=== PATIENT | female | born 1995 | race Caucasian/White ===

== ENCOUNTER 2022-01-11 11:01 | Outpatient (CLI) | payer OTHER, SELFPAY ==
[2022-01-11 11:56] VITALS: PULSE 78
== END 2022-01-11 11:40 | disposition home or self-care (01) ==
LOC: ANHOBOP 11:42 → ANHLDR 11:42
PROVIDERS: PCP Nurse Practitioner Family; Visit Provider Obstetrics & Gynecology
DX: O41.8X90 Other specified disorders of amniotic fluid and membranes, unspecified trimester, not applicable or unspecified (principal); Z3A.00 Weeks of gestation of pregnancy not specified
CPT/HCPCS: 59025; 84112; 99199

== ENCOUNTER 2022-01-20 16:02 | Inpatient (IN) | payer OTHER, SELFPAY ==
[2022-01-20] VITALS (7 sets, daily range): BP systolic 98–126; BP diastolic 59–87; PULSE 81–112; TEMP 36.1–36.6; BMI 31.3
--- NOTE | 2022-01-20 16:20 | LDADM ---
This patient, Sheridan Brennan, was admitted to Labor/Delivery/Recovery 108 on 01/20/22 at 16:02. Plans for labor, pain management and were discussed with patient. Patient/family oriented to hospital policies and general routines including ID bracelet, bed and alarms, visiting hours, pain management, procedures, bathroom and other care routines, personal items, smoking policy, room service/diet and guest tray routines, security routines, and visiting hours. Patient/Family are encouraged to report perceived risks to care and to ask questions if they do not understand what they are told or what they should do. See OBIX for further documentation.
[2022-01-20 16:34] LABS: Basophils Absolute Auto 0.1 K/mm3 (0.0-0.1); Basophils Percent Auto 0.4 % (0.2-1.2); Eosinophils Absolute Auto 0.1 K/mm3 (0-0.3); Eosinophils Percent Auto 0.9 % (0-4.4); Hematocrit 36.3 % (37.0-47.0); Hemoglobin 12.2 g/dL (12.0-15.0); Immature Granulocyte Absolute 0.09 K/mm3 (0.00-0.031); Immature Granulocyte Percent A 0.8 % (0-0.5); Lymphocytes Absolute Auto 2.13 K/mm3 (0.9-3.2); Lymphocytes Percent Auto 18.1 % (18.3-44.2); Mean Corpuscular HGB Conc 33.6 g/dl (32-36); Mean Corpuscular Hemoglobin 30.1 pg (26-34); Mean Corpuscular Volume 89.6 fl (80-100); Mean Platelet Volume 9.6 fl (7.4-10.4); Monocytes Percent Auto 8.2 % (2.6-8.5); Neutrophils Absolute Auto 8.4 K/mm3 (1.3-6.7); Neutrophils Percent Auto 71.6 % (45.5-73.1); Platelet Count Result 226 k/mm3 (150-375); Red Blood Count 4.05 M/mm3 (4.2-5.4); Red Cell Distribution Width 14.2 % (11.5-14.5); White Blood Count 11.8 K/mm3 (4.5-10.0)
[2022-01-20] MEDS: DINOPROSTONE 10 MG VAG INSERT VAGINAL (17:01)
--- NOTE | 2022-01-20 17:02 | WPDANESEPP ---
Anes - Eval Pre Procedure Procedure: labor epidural Date/Time: 01/20/22 17:02 Surgeon: jared Preop Diagnosis: pain during labor Pre Op Diagnosis: Induction of Labor Patient Data Age: 26 Gender: F Height: 1.68 m Weight: 88 kg Last Vital Signs Pulse 112 H 01/20/22 16:45 BP 104/87 01/20/22 16:45 O2 Del Method Room Air 01/20/22 16:19 Allergies Allergy/AdvReac Type Severity Reaction Status Date / Time amoxicillin Allergy Rash Verified 01/07/22 12:38 Home Medications Medication Instructions Recorded Confirmed Type cetirizine 10 mg capsule (Zyrtec) 10 mg PO DAILY 01/07/22 01/20/22 History escitalopram oxalate 5 mg tablet 5 mg PO DAILY 01/07/22 01/20/22 History (Lexapro) prenat.vits,bill,rhw-trhu-[id number] 1 tablet PO DAILY 01/07/22 01/20/22 History vitamin B12 0.5 mg-folic acid 1 mg 1 tablet PO DAILY 01/07/22 01/20/22 History tablet Laboratory Tests 01/20/22 01/20/22 16:17 16:17 WBC 11.8 K/mm3 H K/mm3 (4.5-10.0) RBC 4.05 M/mm3 L M/mm3 (4.2-5.4) Hgb 12.2 g/dL g/dL (12.0-15.0) Hct 36.3 % L % (37.0-47.0) MCV 89.6 fl fl (80-100) MCH 30.1 pg pg (26-34) MCHC 33.6 g/dl g/dl (32-36) RDW 14.2 % % (11.5-14.5) Plt Count 226 k/mm3 k/mm3 (150-375) MPV 9.6 fl fl (7.4-10.4) Immature Gran % (Auto) 0.8 % H % (0-0.5) Neut % (Auto) 71.6 % % (45.5-73.1) Lymph % (Auto) 18.1 % L % (18.3-44.2) [place] % (Auto) 8.2 % % (2.6-8.5) Eos % (Auto) 0.9 % % (0-4.4) Baso % (Auto) 0.4 % % (0.2-1.2) Lymph # (Auto) 2.13 K/mm3 K/mm3 (0.9-3.2) [place] # (Auto) 1.0 K/mm3 H K/mm3 (0.1-0.6) Eos # (Auto) 0.1 K/mm3 K/mm3 (0-0.3) Baso # (Auto) 0.1 K/mm3 K/mm3 (0.0-0.1) Abs Immat Gran (auto) 0.09 K/mm3 H K/mm3 (0.00-0.031) Absolute Neuts (auto) 8.4 K/mm3 H K/mm3 (1.3-6.7) Absolute Nucleated RBC 0.0 K/mm3 K/mm3 (0.0-0.012) Nucleated RBC % 0.0 % % (0.0-0.2) RPR Pending Patient hx anesthesia problems: none Family hx anesthesia problems: none Results Review: All pre-operative results and documents have been reviewed as part of the pre-operative evaluation. [facility] Family History Family History (Updated 01/07/22 @ 12:44 by Edith Mishra RN) Father Hypertension Grandparent Prostate carcinoma Melanoma Cerebrovascular accident Ovarian cancer Social History Social History Smoking status: Never smoker Substance use: never Spiritual care concerns: No Exam Day of Procedure 01/20/22 17:02
[2022-01-20 19:03] LABS: HIV 1/2 Ab P24 Ag Result Negative (Negative)
[2022-01-21] VITALS (189 sets, daily range): BP systolic 82–224; BP diastolic 41–188; PULSE 29–163; RESP 18; TEMP 36.4–37.4; O2SAT 66–100
[2022-01-21] MEDS: fentaNYL CITRATE INJ (*CRX) 100 MCG/2 ML VIAL 50 MCG IV PUSH ×2 (00:01→01:19)
[2022-01-21] MEDS: OXYTOCIN 30 UNITS/NS 500 ML 30 UNITS/500 ML BAG IV CONT (01:12)
[2022-01-21] MEDS: LACTATED RINGERS 1,000 ML 125 ML IV CONT ×3 (01:13→08:30)
[2022-01-21] MEDS: TERBUTALINE SULFATE 1 MG/ML VIAL (08:16)
--- NOTE | 2022-01-21 08:45 | WPDOBADMIT ---
Obstetrics - Admit Note Admission Note: record reviewed. Additions to the history and/or subsequent changes in the physical findings follow. 26 y/o G1 at 39 1/7 weeks here for induction of labor. Cervidil was placed last evening, withdrawn after SROM. Now comfortable with epidural. Have been augmenting with oxytocin, but FHR tracing has prompted us to stop the oxytocin. Cervical dilation has progressed without further stimulation. Recent FHR deceleration in the setting of frequent contractions responded well to one dose of terbutaline. uncomplicated. GBS neg. AVSS NST 150 bpm, reactive currently TOCO: contractions every 5 min after terbutaline ABD soft, nontender, gravid, vertex EXT nontender Cervix 8-9/90/0 Continue labor. Anticipate .
[2022-01-21] MEDS: FAMOTIDINE 20 MG/2 ML VIAL IV PUSH (10:20)
[2022-01-21] MEDS: SODIUM CHLORIDE 0.9% IV 300 ML 600 ML I-UTERINE (11:30)
--- NOTE | 2022-01-21 11:31 | PM.OBPNLAB ---
Pain Control Date/time seen: 01/21/22 11:31 Comfortable with epidural. AVSS NST reactive, but also some variable decelerations TOCO: contractions every 2-5 min Cervix 9/100/+1. IUPC placed. Continue labor.
--- NOTE | 2022-01-21 13:01 | PM.OBPRVD ---
OB - Delivery Note Procedure Delivery date: 01/21/22 Procedure: Induction of labor with Induction method: Per Cervidil Protocol Delivery augmentation: Pitocin Delivery monitor: External FHT, External Uterine, Internal FHT and Internal Uterine Route of delivery: Laceration Description: Perineal - 2nd Degree Delivery repair: vicryl (3-0) Specimen: Yes (cord blood) Quantitative Blood Loss (ml): 220 Anesthesia type: Epidural Disposition: PACU Complications: None Narrative: 26 y/o G1 at 39 1/7 weeks gestation who presented to the hospital for induction of labor. Cervidil was placed overnight. She had SROM and the Cervidil was withdrawn. Oxytocin was administered intravenously. She received an epidural for pain control. Her labor progressed and her cervix dilated completely. She pushed with good effort and delivered the infant's head to the perineum, followed by the body. The nose and mouth were bulb suctioned. After a delay, the cord was clamped and cut. The infant was handed off the field. Cord blood was collected. The placenta delivered spontaneously and was grossly normal in appearance. The usual 3 vessel cord was noted. A second degree midline perineal laceration was sustained. This was reapproximated using 3 0 Vicryl in the usual layered fashion. Excellent hemostasis resulted as did excellent reapproximation of the normal anatomy. Needle and instrument counts were correct. The patient was taken to recovery room in stable condition. The went to the nursery in stable condition. I was present and scrubbed for the entire delivery. Baby Date of : 01/21/22 Time of : 12:36 Weeks of gestation at delivery: 39 Infant gender: Female Weight (pounds): 7 Weight (ounces): 5 presentation: vertex position: Left Occiput Anterior Placenta delivery description: Spontaneous and Normal Configuration Cord Vessel Description: 3 Vessels and Delayed Cord Clamping score one minute: 8 score five minutes: 9
--- NOTE | 2022-01-21 13:03 | PM.OBDSVD ---
DS: Admitting Diagnosis Discharge Date 01/22/22 Admitting Diagnosis IUP at 39 1/7 weeks DS: Discharge Diagnosis Discharge Diagnosis (1) (normal spontaneous vaginal delivery): Code(s): O80 - Encounter for full-term uncomplicated delivery Status: Acute OB - DS: Summary OB Procedures : None OB Procedures Intrapartum: Spontaneous Vag Delivery OB Procedures: : None Time Spent with Patient Time attestation: Total time spent providing and/or coordinating discharge services: DS: Data Data Completed and Pending Labs on day of discharge: Labs from last 24 hours 01/20/22 01/20/22 01/20/22 16:17 16:17 16:17 WBC 11.8 H RBC 4.05 L Hgb 12.2 Hct 36.3 L MCV 89.6 MCH 30.1 MCHC 33.6 RDW 14.2 Plt Count 226 MPV 9.6 Immature Gran % (Auto) 0.8 H Neut % (Auto) 71.6 Lymph % (Auto) 18.1 L [place] % (Auto) 8.2 Eos % (Auto) 0.9 Baso % (Auto) 0.4 Lymph # (Auto) 2.13 [place] # (Auto) 1.0 H Eos # (Auto) 0.1 Baso # (Auto) 0.1 Abs Immat Gran (auto) 0.09 H Absolute Neuts (auto) 8.4 H Absolute Nucleated RBC 0.0 Nucleated RBC % 0.0 RPR Pending HIV 1&2 Ab/P24 Ag 4thGn Blood Type A Positive Antibody Screen Negative 01/20/22 16:17 WBC RBC Hgb Hct MCV MCH MCHC RDW Plt Count MPV Immature Gran % (Auto) Neut % (Auto) Lymph % (Auto) [place] % (Auto) Eos % (Auto) Baso % (Auto) Lymph # (Auto) [place] # (Auto) Eos # (Auto) Baso # (Auto) Abs Immat Gran (auto) Absolute Neuts (auto) Absolute Nucleated RBC Nucleated RBC % RPR HIV 1&2 Ab/P24 Ag 4thGn Negative Blood Type Antibody Screen Discharge Plan Discharge Attending physician on discharge: Jarett Ramos Discharging Clinician: Jarett Ramos Patient Disposition: Home, Self-Care Activity: pelvic rest Diet: regular Discharge Instructions: Education: Mom and Baby Guide Given to: Mother Follow-Up: Call your delivering provider's office for an appointment to be seen in: 6 Weeks Mom and baby should come to the [facility] for the follow-up appointment. Appointment Date/Time: January 23, 2022 at 10:00 am What to expect at your follow-up visit: Blood Pressure Check Call [phone] if you are unable to keep your appointment time. BREAST CARE: * Wear a snug supportive bra. * For engorgement discomfort: Breast Feeding: * Apply warm moist washcloths * Express milk as needed to relieve engorgement * Wear loose clothing Bottle Feeding: * May apply ice packs * For sore nipples: * Identify correct latch-on * Apply warm moist washcloths before and after nursing * Air dry nipples after nursing * May apply Lansinoh cream to nipples PERINEAL CARE: * Until bleeding stops, use your jh bottle after urinating * Change your pad frequently throughout the day * You may take sitz baths several times a day (fill your bathtub with warm water and soak for 20 minutes.) Do NOT bathe in the water * No tub baths until seen by your physician - You may shower ACTIVITY: * Rest as much as possible. * Do not exercise or lift anything heavier than your baby (such as laundry or other children.) * Avoid stairs or driving as much as possible. * Do not put anything into the vagina. No douching, tampons, or sexual activity until seen by physician. NOTIFY PHYSICIAN IF YOU HAVE ANY QUESTIONS OR IF ANY OF THE FOLLOWING SYMPTOMS OCCUR: * If your perineum becomes red, swollen, or more painful than what you have experienced in the hospital. * If your vaginal bleeding becomes foul smelling. * If your vaginal bleeding becomes more heavy than a period or if your bleeding changes from pink to bright red. However, you may pass an occasional walnut-sized clot once or twice for the first week . * If you experience a sharp, shooti
[2022-01-21] MEDS: OXYTOCIN 30 UNITS/NS 500 ML 30 UNITS/500 ML BAG 125 UNITS IV CONT (13:11)
[2022-01-21 14:15] LABS: Rapid Plasma Reagin Non-Reactive (NonReactive)
[2022-01-21] MEDS: WITCH HAZEL 40 PADS 1 PAD TOPICAL (14:40)
[2022-01-21] MEDS: BENZOCAINE 20% AER SPR (*SP) 56 GM CAN 1 SPRAY TOPICAL (14:40)
[2022-01-21] MEDS: IBUPROFEN 600 MG TABLET PO ×2 (14:40→23:00)
--- NOTE | 2022-01-21 15:08 | OBPPTRN ---
Patient transferred to post room #280 via wheelchair. Support person present. Oriented to unit, room, information board, rooming in, admission packet and security measures. Patient verbalizes understanding.
[2022-01-22 04:10] VITALS: BP 101/60; PULSE 86; RESP 16; TEMP 36.4
[2022-01-22 05:55] LABS: Hematocrit 29.7 % (37.0-47.0); Hemoglobin 9.8 g/dL (12.0-15.0)
--- NOTE | 2022-01-22 06:45 | PC.NURSE ---
PT introductions made and plan of care discussed per post , pain management, breast feeding, daily care activities and pending discharge. PT and spouse both recipients of such instructions. No barriers to learning identified at this time. PT received such instructions per one to one discussion, mom baby care guide and demonstrations this shift. PT verbalized understanding of such care.
[2022-01-22 08:20] VITALS: BP 112/72; PULSE 89; RESP 16; TEMP 36.8; O2SAT 100
--- NOTE | 2022-01-22 09:16 | WPDANLDPN2 ---
Anes-Prog Note L&D Date/Time: 01/22/22 09:16 Comfortable throughout: labor and delivery Neuraxial method: epidural Epidural/Spinal procedure site: clean & non-tender Neuro status: Neuro function grossly intact. Vital Signs: Last Vital Signs Temp 36.8 C 01/22/22 08:20 Pulse 89 01/22/22 08:20 Resp 16 01/22/22 08:20 BP 112/72 01/22/22 08:20 Pulse Ox 100 01/22/22 08:20 O2 Del Method Room Air 01/21/22 18:30 Pain score (VAS): 2 I/O: Intake & Output 01/21/22 01/22/22 01/22/22 23:59 07:59 15:59 Output Total 500 Balance -500 Patient feedback: Patient satisfied with anesthetic care.
[2022-01-22] MEDS: ACETAMINOPHEN 325 MG TABLET 650 MG PO (11:13)
[2022-01-22] MEDS: ESCITALOPRAM OXALATE 5 MG TABLET PO (11:14)
[2022-01-22] MEDS: MULTIVIT/MIN/PREN/FOL AC/IRON TABLET 1 TAB PO (11:14)
[2022-01-22] MEDS: IBUPROFEN 600 MG TABLET PO (11:14)
[2022-01-22] MEDS: DOCUSATE SODIUM 100 MG CAPSULE PO (11:14)
[2022-01-22] MEDS: LORATADINE 10 MG TABLET PO (11:15)
[2022-01-22] MEDS: POLYSACCHARIDE IRON COMPLEX 150 MG CAPSULE PO (11:15)
[2022-01-22] MEDS: LANOLIN (LANSINOH) 7.5 GM CREAM 1 APPLIC TOPICAL (11:18)
--- NOTE | 2022-01-22 11:40 | PC.NURSE ---
1000 Breast feeding note; mother states her nipples are very sore from breast feeding, now not wanting to put to breast because of pain, stating the pain curls my toes , and became tearful. Baby just past time to eat, and mother waited because baby was quiet, and hesitant to feed because of pain. Suggested nipple rest for a least two feedings, starting some pumping, and bottle feeding . Mother readily agreed to this. Mother's nipples appear cracked and red, more inflammation on her R side. No bleeding. Set up with breast pump; 24mm flanges used and mother able to collect 28cc colostrum. Nipples slightly swollen after pumping; suggested trying 21mm flanges next time. Mother states she has a Spectra pump at home; discussed assessing flange size for comfort, observing for milk collection; Reviewed nipple care using breast milk, air drying. Given gel packs for nipple care/comfort. Discussed tea bag treatment for nipple care several times a day. Mother reported less than 2 pain with pumping. she reports nipple pain has been high, 8-10 with baby's nursing. Parents wanting to be discharged home today. Nurse encouraged them to stay for breast feeding help, but will probably be discharged home later today. Nurse offered to come later in afternoon to assist mother with trying to latch after resting 2 feedings. The other plan suggested was nipple rest for 24 hours, and attempting to latch tomorrow. Offered LC appointment tomorrow after her scheduled f/u visit and mother agreed to that. Will evaluate nipple pain and attempt to latch baby tomorrow. Instructed that with latch, nipple pain should be 0-2 and mother should relatch if higher than a 2. Baby had not eaten in 5 hours; parents shown how to pace bottle feed infant. Baby was very sleepy initially; parents shown how to gently awaken her, and baby did take 16cc Enfamil with rhythmic suck swallow and tolerated well. Nurse started the feeding and FOB completed the bottle feeding. Mother pumped during that time. next feeding, mother plans to pump and baby will receive the colostrum collected. Parents have Mother Baby guide; breast feeding section flagged. f/u contact number for breast feeding office highlighted. Both parents attentive and voiced understanding of all information shared.
[2022-01-22 11:50] VITALS: BP 124/82; PULSE 112; RESP 16; TEMP 36.6; O2SAT 100
--- NOTE | 2022-01-22 15:21 | PM.OBPNVD ---
OB - PN: Subj Subjective Date/time seen: 01/22/22 15:21 Narrative: Pain OK. Would like to go home. OB - PN: Obj Data Labs CBC & Chem 7: 01/22/22 04:29 Labs: Laboratory Results - last 24 hr 01/22/22 04:29 Hgb 9.8 L Hct 29.7 L OB - PN A/P Plan Comments: A: PPD#1, doing well. P: Home to f/u 6 weeks. Exam Psych: Other: AVSS ABD soft, nontender, fundus firm EXT nontender
--- NOTE | 2022-01-22 16:30 | PC.NURSE ---
PT received discharge instructions per protocol and verbalized understanding of such care.
--- NOTE | 2022-01-22 17:12 | PC.NURSE ---
PT discharged to home ambulatory accompanied by spouse and and taken to waiting car. Follow up appts confirmed
[2022-01-23 10:10] VITALS: BP 121/72; PULSE 97; RESP 20; TEMP 36.8; O2SAT 100
== END 2022-01-22 17:12 | disposition home or self-care (01) | DRG 807 ==
LOC: ANHLDR 01-21 13:05 → ANHOB2 01-21 15:50
PROVIDERS: Admitting Provider Obstetrics & Gynecology; PCP Nurse Practitioner Family; Visit Provider Obstetrics & Gynecology
DX: O76 Abnormality in fetal heart rate and rhythm complicating labor and delivery (principal); Z37.0 Single live birth; O70.1 Second degree perineal laceration during delivery; Z3A.39 39 weeks gestation of pregnancy
CPT/HCPCS: 36415; 85014; 85018; 85025; 86592; 86703; 86850; 86900; 86901; A9270; G0432; J2590; J2795; J3010; J3105; J7030; J7120

== ENCOUNTER 2022-01-23 10:44 | Outpatient (RCR) | payer OTHER, SELFPAY ==
--- NOTE | 2022-01-23 15:04 | PC.NURSE ---
Addendum entered by Ai Keen RN 01/23/22 15:38: Baby's total feeding at the breast at today's visit was 10 minutes on each side, transferring 34ml per weighted feeding. Addendum entered by Ai Keen RN 01/23/22 15:30: Parents have called Dr. Devon Ramos's office to schedule initial visit for 01-24-22 or 01-27-22. Original Note: visit; In: 1044 Out: 1220 Mother here for visit because of very sore nipples, damaged nipples while in the hospital, causing severe pain with feedings and mother not wanting to put infant to breast because of pain that curled by toes . LC spent time with mother yesterday prior to mother and baby's discharge; Mother nipples bilaterally inflamed, with cracks noted on R side. Plan was nipple rest for 24 hours, pumping was initiated and mother pumped at each feeding overnight. Baby was bottle fed colostrum and formula about an ounce each feeding since discharge. Today, mother's nipples appear much improved, inflammation resolved; r side still small cracks, but skin appears intact. Mother's milk appears to be in, breasts firm, full. No s/o mastitis. Mother desired to put to breast. Football position on L then R was most comfortable for mom. Baby awake, eager, showing feeding cues; Reviewed positioning, alignment, use of c-hold and nose to nipple latch on, waiting for to open her mouth wide for latch. Baby did latch easily with apparent deep latch, maintained latch and demonstrated rhythmic sucking with frequents swallowing, and some gulping. Parents shown how to assess for deep latch and listen and observe for swallowing. Baby nursed 10 minutes; weighted feeding determined baby transferred 34 ml . Reviewed with parents, 8-12 feedings a day, encouraging infant to nurse both sides. mother to do breast massage and hand expression prior to latch on. Latch and feeding pain level to be at 2 or less, with mother relatching until comfortable latch obtained. If comfortable latch not obtained, stop breast feeding at that feeding, bottle feed infant and pump. Feeding to be an ounce or more as baby desires of pumped breast milk and/or formula. Nipple care to include breast milk to nipples, air dry, lanolin and hydrogel pads. Can do warm tea bag treatments. Reviewed use of pt's Spectra pump and how to alternate between massage and expression cycle, using moderate, comfortable settings. Mother had been using 24mm Spectra flanges; yesterday in hospital 21mm flanges were more comfortable; pt to purchase the smaller Spectra flange and evaluate if she continues needing to pump. Pt reviewed and signed the Plan agreed on: continue 8-12 breast feedings a day. Do breast massage and hand expression prior to latching. Observe for swallowing; when swallowing slows, switch sides. Nurse at pain level of no more than 2 on 1-10 scale. If unable to get comfortable latch, stop attempts, pump and bottle feed . Pumping at comfortable settings, 15 minutes. Nipple care to include breast milk to nipples, air dry, Lanolin; hydrogel pads. Can use warm tea bag treatment 2-3 times a day. Notify doctor and or support of continued painful latch, of inflamed nipples, cracks, bleeding or s/o mastitis, redness, pain in breasts. Call doctor or support with any questions or concerns. Use Mother-Baby Guide for home reference, call doctors as needed. Note to be faxed to Dr. Devon Ramos today.
--- NOTE | 2022-01-23 15:29 | PC.NURSE ---
1220 Mother left visit reporting feeling very encouraged about continued breast feeding.
== END 2022-02-25 09:16 | disposition home or self-care (01) ==
LOC: ANHOBOP 10:44
PROVIDERS: PCP Nurse Practitioner Family; Visit Provider Obstetrics & Gynecology
DX: Z39.1 Encounter for care and examination of lactating mother (principal)
CPT/HCPCS: 99213; G0463

== ENCOUNTER 2023-12-23 13:48 | Inpatient (IN) | payer OTHER, SELFPAY ==
[2023-12-23] VITALS (15 sets, daily range): BP systolic 105–132; BP diastolic 61–80; PULSE 70–105; RESP 16; TEMP 36.2–36.8; BMI 29.2
--- NOTE | 2023-12-23 14:11 | LDADM ---
This patient, Sheridan Brennan, was admitted to Labor/Delivery/Recovery 103 on 12/23/23 at 13:48. Plans for labor, pain management and were discussed with patient. Patient/family oriented to hospital policies and general routines including ID bracelet, bed and alarms, visiting hours, pain management, procedures, bathroom and other care routines, personal items, smoking policy, room service/diet and guest tray routines, security routines, and visiting hours. Patient/Family are encouraged to report perceived risks to care and to ask questions if they do not understand what they are told or what they should do. See OBIX for further documentation.
[2023-12-23 14:19] LABS: Basophils Percent Auto 0.4 % (0.2-1.2); Eosinophils Absolute Auto 0.1 K/mm3 (0-0.3); Eosinophils Percent Auto 0.5 % (0-4.4); Hematocrit 36.8 % (37.0-47.0); Hemoglobin 12.6 g/dL (12.0-15.0); Immature Granulocyte Absolute 0.04 K/mm3 (0.00-0.031); Immature Granulocyte Percent A 0.4 % (0-0.5); Lymphocytes Absolute Auto 1.99 K/mm3 (0.9-3.2); Lymphocytes Percent Auto 17.6 % (18.3-44.2); Mean Corpuscular HGB Conc 34.2 g/dl (32-36); Mean Corpuscular Hemoglobin 30.4 pg (26-34); Mean Corpuscular Volume 88.9 fl (80-100); Monocytes Absolute Auto 0.7 K/mm3 (0.1-0.6); Monocytes Percent Auto 6.1 % (2.6-8.5); Neutrophils Absolute Auto 8.5 K/mm3 (1.3-6.7); Platelet Count Result 188 k/mm3 (150-375); Red Blood Count 4.14 M/mm3 (4.2-5.4); Red Cell Distribution Width 13.4 % (11.5-14.5); White Blood Count 11.3 K/mm3 (4.5-10.0)
[2023-12-23] MEDS: DINOPROSTONE 10 MG VAG INSERT VAGINAL (14:43)
[2023-12-23] MEDS: LACTATED RINGERS 1,000 ML 125 ML IV CONT (14:44)
[2023-12-23] MEDS: ceFAZolin 2 GM/D5W 50 ML 2 GM/50 ML BAG IVPB (14:44)
[2023-12-23] MEDS: ceFAZolin 1 GM/NS 50 ML 1 GM/50 ML BAG IVPB (22:45)
[2023-12-24] VITALS (172 sets, daily range): BP systolic 79–149; BP diastolic 49–97; PULSE 57–124; RESP 16–18; TEMP 36.3–37.2; O2SAT 83–100
[2023-12-24] MEDS: LACTATED RINGERS 1,000 ML 125 ML IV CONT (02:55)
--- NOTE | 2023-12-24 03:02 | WPDANESEPP ---
Anes - Eval Pre Procedure Procedure: Labor Epidural Date/Time: 12/24/23 03:02 Surgeon: Rachel Preop Diagnosis: Labor Pain Pre Op Diagnosis: IOL Patient Data Age: 28 Gender: F Height: 1.68 m Weight: 82 kg Last Vital Signs Temp 36.2 C L 12/23/23 22:48 Pulse 78 12/24/23 03:00 Resp 16 12/23/23 20:22 BP 116/72 12/24/23 03:00 Pulse Ox 99 12/24/23 02:59 O2 Del Method Room Air 12/23/23 14:09 Allergies Allergy/AdvReac Type Severity Reaction Status Date / Time amoxicillin Allergy Rash Verified 11/26/23 12:29 Home Medications Medication Instructions Recorded Confirmed Type cetirizine 10 mg capsule (Zyrtec) 10 mg PO DAILY 01/07/22 12/23/23 History escitalopram oxalate 5 mg tablet 5 mg PO DAILY 01/07/22 12/23/23 History (Lexapro) prenat.vits,bill,akq-mffz-kxtfe 1 tablet PO DAILY 01/07/22 12/23/23 History Laboratory Tests 12/23/23 14:00 WBC 11.3 H K/mm3 (4.5-10.0) RBC 4.14 L M/mm3 (4.2-5.4) Hgb 12.6 g/dL (12.0-15.0) Hct 36.8 L % (37.0-47.0) MCV 88.9 fl (80-100) MCH 30.4 pg (26-34) MCHC 34.2 g/dl (32-36) RDW 13.4 % (11.5-14.5) Plt Count 188 k/mm3 (150-375) MPV 10.0 fl (7.4-10.4) Immature Gran % (Auto) 0.4 % (0-0.5) Neut % (Auto) 75.0 H % (45.5-73.1) Lymph % (Auto) 17.6 L % (18.3-44.2) [place] % (Auto) 6.1 % (2.6-8.5) Eos % (Auto) 0.5 % (0-4.4) Baso % (Auto) 0.4 % (0.2-1.2) Lymph # (Auto) 1.99 K/mm3 (0.9-3.2) [place] # (Auto) 0.7 H K/mm3 (0.1-0.6) Eos # (Auto) 0.1 K/mm3 (0-0.3) Baso # (Auto) 0.0 K/mm3 (0.0-0.1) Abs Immat Gran (auto) 0.04 H K/mm3 (0.00-0.031) Absolute Neuts (auto) 8.5 H K/mm3 (1.3-6.7) Absolute Nucleated RBC 0.000 K/mm3 (0.0-0.012) Nucleated RBC % 0.0 % (0.0-0.2) RPR Pending Blood Type A Positive Antibody Screen Negative : gestational age (JUANA 12/25/23, ) Patient hx anesthesia problems: none Family hx anesthesia problems: none Results Review: All pre-operative results and documents have been reviewed as part of the pre-operative evaluation. [facility] [place] Family History Family History Father Hypertension Grandparent Prostate carcinoma Melanoma Cerebrovascular accident Ovarian cancer Social History Social History Smoking status: Never smoker Substance use: never Do You Feel Safe in your Home?: No Lack of Transportation: No Lack of Food: Never True Current Housing: I Have Housing Concerned About Future Housing: No Difficulty Paying Gas/Electric Bills: No Difficulty Paying for Meds: No Currently Unemployed: No Education: Don't Know Difficulty w/ Childcare or Family Care: No Spiritual care concerns: No Exam Day of Procedure 12/24/23 03:02 Patient weight: normal Heart: regular rate and rhythm Lungs: normal air movement Airway: Mallampati scale class II Neurological: alert and oriented
[2023-12-24] MEDS: ONDANSETRON INJ 4 MG/2 ML VIAL IV PUSH (03:38)
[2023-12-24] MEDS: ceFAZolin 1 GM/NS 50 ML 1 GM/50 ML BAG IVPB (06:33)
[2023-12-24] MEDS: OXYTOCIN 30 UNITS/NS 500 ML 30 UNITS/500 ML BAG IV CONT (06:34)
[2023-12-24] MEDS: ESCITALOPRAM OXALATE 5 MG TABLET PO (08:12)
--- NOTE | 2023-12-24 08:46 | WPDOBADMIT ---
Obstetrics - Admit Note Admission Note: record reviewed. Additions to the history and/or subsequent changes in the physical findings follow. 28 y/o at 39 6/7 weeks here for induction of labor. Cervidil last night, now withdrawn. Comfortable with epidural. GBS pos, receiving Ancef. AVSS NST reactive TOCO: contractions every 2-3 min ABD soft, nontender, gravid, vertex EXT nontender Cervix 4/50/-2. AROM with clear fluid. Vertex. IUPC placed. A: IUP at term, here desiring induction of labor. P: Oxytocin. Anticipate . Ancef for GBS.
--- NOTE | 2023-12-24 11:39 | PM.OBPRVD ---
OB - Vaginal Delivery Note Procedure Delivery date: 12/24/23 Events: Positive Group B Strep (GBS) Induction method: Per Cervidil Protocol Delivery augmentation: Rupture of Membranes and Pitocin Delivery monitor: External FHT, External Uterine and Internal Uterine Route of delivery: Episiotomy description: None Laceration Description: Perineal - 2nd Degree and Labial (right) Delivery repair: vicryl (3-0) Specimen: Yes (cord blood) Quantitative Blood Loss (ml): 320 Anesthesia type: Epidural Disposition: PACU Complications: None Narrative: 28 y/o at 39 5/7 weeks gestation who presented to the hospital for induction of labor. Ancef was given for GBS colonization. Cervidil was placed overnight, then withdrawn the next morning. Oxytocin was administered intravenously. Amniotomy was performed with return of clear fluid. She received an epidural for pain control. Her labor progressed and her cervix dilated completely. She pushed with good effort and delivered the 's head to the perineum, followed by the body. The nose and mouth were bulb suctioned. After a delay, the cord was clamped and cut. The infant was handed off the field. Cord blood was collected. The placenta delivered spontaneously and was grossly normal in appearance. The usual 3 vessel cord was noted. A second degree midline perineal laceration was sustained. This was reapproximated using 3 0 Vicryl in the usual layered fashion. A right-sided labial laceration was repaired using interrupted figure of eight sutures of the same material. Excellent hemostasis resulted as did excellent reapproximation of the normal anatomy. Needle and instrument counts were correct. The patient was taken to recovery room in stable condition. The went to the nursery in stable condition. I was present and scrubbed for the entire delivery. Baby Date of : 12/24/23 Time of : 11:17 Weeks of gestation at delivery: 39 Infant gender: Female Weight (pounds): 7 Weight (ounces): 10 presentation: vertex position: Right Occiput Anterior Placenta delivery description: Spontaneous and Normal Configuration Cord Vessel Description: 3 Vessels and Delayed Cord Clamping score one minute: 8 score five minutes: 9
--- NOTE | 2023-12-24 11:39 | PM.OBDSVD ---
DS: Admitting Diagnosis Discharge Date 12/25/23 Admitting Diagnosis IUP at 39 5/7 weeks GBS colonization DS: Discharge Diagnosis Discharge Diagnosis (1) (normal spontaneous vaginal delivery): Code(s): O80 - Encounter for full-term uncomplicated delivery Status: Acute (2) GBS (group B Streptococcus carrier), +RV culture, currently : Code(s): O99.820 - Streptococcus B carrier state complicating Status: Acute OB - DS: Summary OB Procedures : None OB Procedures Intrapartum: Spontaneous Vag Delivery and GBS prophylaxis OB Procedures: : None Time Spent with Patient Time attestation: Total time spent providing and/or coordinating discharge services: DS: Data Data Completed and Pending Labs on day of discharge: Labs from last 24 hours 12/23/23 14:00 WBC 11.3 H RBC 4.14 L Hgb 12.6 Hct 36.8 L MCV 88.9 MCH 30.4 MCHC 34.2 RDW 13.4 Plt Count 188 MPV 10.0 Immature Gran % (Auto) 0.4 Neut % (Auto) 75.0 H Lymph % (Auto) 17.6 L Will % (Auto) 6.1 Eos % (Auto) 0.5 Baso % (Auto) 0.4 Lymph # (Auto) 1.99 Will # (Auto) 0.7 H Eos # (Auto) 0.1 Baso # (Auto) 0.0 Abs Immat Gran (auto) 0.04 H Absolute Neuts (auto) 8.5 H Absolute Nucleated RBC 0.000 Nucleated RBC % 0.0 RPR Pending Blood Type A Positive Antibody Screen Negative Discharge Plan Discharge Attending physician on discharge: Jarett Ramos Consulting providers: Aaliyah Ayala; Myrna Fair Discharging Clinician: Jarett Ramos Patient Disposition: Home, Self-Care Activity: pelvic rest Diet: regular Discharge Instructions: Education: Mom and Baby Guide Given to: Mother Follow-Up: Call your delivering provider's office for an appointment to be seen in: 6 Weeks Mom and baby should come to the [facility] for the follow-up appointment. Appointment Date/Time: December 28, 2023 at 11:00 am What to expect at your follow-up visit: Blood Pressure Check Physical Assessment Call [phone] if you are unable to keep your appointment time. BREAST CARE: * Wear a snug supportive bra. Bottle Feeding: * May apply ice packs EPISIOTOMY/PERINEAL CARE: * Until bleeding stops, use your jh bottle after urinating * Change your pad frequently throughout the day * You may take sitz baths several times a day (fill your bathtub with warm water and soak for 20 minutes.) Do NOT bathe in the water * No tub baths until seen by your physician - You may shower ACTIVITY: * Rest as much as possible. * Do not exercise or lift anything heavier than your baby (such as laundry or other children.) * Avoid stairs or driving as much as possible. * Do not put anything into the vagina. No douching, tampons, or sexual activity until seen by physician. NOTIFY PHYSICIAN IF YOU HAVE ANY QUESTIONS OR IF ANY OF THE FOLLOWING SYMPTOMS OCCUR: * If your episiotomy or incision becomes red, swollen, or more painful than what you have experienced in the hospital. * If your vaginal bleeding becomes foul smelling. * If your vaginal bleeding becomes more heavy than a period or if your bleeding changes from pink to bright red. However, you may pass an occasional walnut-sized clot once or twice for the first week . * If you experience a sharp, shooting pain in you calves. * If you discover a hard, reddened area on your breast or if you experience flu-like symptoms. DIET: * Eat regular, well-balanced meals. * Drink plenty of fluids daily. If , drink to thirst.Call or return if temperature above 100.4? F, increased abdominal pain, increased vaginal bleeding or any new problems. Stand Alone Forms: General Discharge Information Follow-up/Referrals: Jarett Ramos MD [Physician] - 6 Weeks Discharge Medications: New ibuprofen 600 mg tablet 600 mg PO Q6H PRN (Reason: cramps) Qty: 30 0RF Continued
[2023-12-24] MEDS: OXYTOCIN 30 UNITS/NS 500 ML 30 UNITS/500 ML BAG 125 UNITS IV CONT (11:55)
[2023-12-24] MEDS: IBUPROFEN 600 MG TABLET PO ×2 (13:09→19:51)
[2023-12-24] MEDS: WITCH HAZEL 40 PADS 1 PAD TOPICAL (13:10)
[2023-12-24] MEDS: BENZOCAINE 20% AER SPR (*SP) 56 GM CAN 1 SPRAY TOPICAL (13:10)
[2023-12-24 13:20] LABS: Rapid Plasma Reagin Non-Reactive (NonReactive)
--- NOTE | 2023-12-24 14:00 | OBPPTRN ---
Patient transferred to post room #291 via wheelchair. Support person present. Oriented to unit, room, information board, rooming in, admission packet and security measures. Patient verbalizes understanding.
[2023-12-24] MEDS: ACETAMINOPHEN 325 MG TABLET 650 MG PO (16:36)
[2023-12-25] MEDS: ACETAMINOPHEN 325 MG TABLET 650 MG PO ×2 (00:56→08:23)
[2023-12-25 04:00] VITALS: BP 105/56; PULSE 76; RESP 18; TEMP 36.6; O2SAT 100
[2023-12-25] MEDS: IBUPROFEN 600 MG TABLET PO ×2 (04:07→11:22)
[2023-12-25 04:27] LABS: Hematocrit 29.5 % (37.0-47.0); Hemoglobin 9.9 g/dL (12.0-15.0)
[2023-12-25] MEDS: ESCITALOPRAM OXALATE 5 MG TABLET PO (08:23)
[2023-12-25] MEDS: POLYSACCHARIDE IRON COMPLEX 150 MG CAPSULE PO (08:24)
[2023-12-25] MEDS: MULTIVIT/MIN/PREN/FOL AC/IRON TABLET 1 TAB PO (08:24)
[2023-12-25 08:40] VITALS: BP 115/67; PULSE 71; RESP 16; TEMP 36.4; O2SAT 100
[2023-12-25] MEDS: DOCUSATE SODIUM 100 MG CAPSULE PO (08:41)
--- NOTE | 2023-12-25 09:55 | WPDANLDPN2 ---
Anes-Prog Note L&D Date/Time: 12/25/23 09:55 Comfortable throughout: labor and delivery Neuraxial method: epidural Epidural/Spinal procedure site: clean & non-tender Neuro status: Neuro function grossly intact. Cardiovascular status: normal Respiratory status: normal Airway patency: baseline Mental status: baseline Post-Op hydration status: normal Vital Signs: Last Vital Signs Temp 36.4 C L 12/25/23 08:40 Pulse 71 12/25/23 08:40 Resp 16 12/25/23 08:40 BP 115/67 12/25/23 08:40 Pulse Ox 100 12/25/23 08:40 O2 Del Method Room Air 12/23/23 14:09 Pain score (VAS): 0/0 I/O: Intake & Output 12/24/23 12/25/23 12/25/23 23:59 07:59 15:59 Intake Total 500 Balance 500 Post-procedural complaints: none Patient feedback: Patient satisfied with anesthetic care.
[2023-12-28 11:23] VITALS: BP 125/69; PULSE 90; RESP 18; TEMP 36.8; O2SAT 100
== END 2023-12-25 14:55 | disposition home or self-care (01) | DRG 807 ==
LOC: ANHLDR 12-24 10:32 → ANHOB2 12-24 14:17
PROVIDERS: Admitting Provider Obstetrics & Gynecology; PCP Nurse Practitioner Family; Visit Provider Obstetrics & Gynecology
DX: O99.824 Streptococcus B carrier state complicating childbirth (principal); Z37.0 Single live birth; Z3A.39 39 weeks gestation of pregnancy; O70.1 Second degree perineal laceration during delivery
CPT/HCPCS: 36415; 85014; 85018; 85025; 86592; 86850; 86900; 86901; A9270; J0690; J2405; J2590; J2795; J7120

== ENCOUNTER 2024-10-31 10:49 | Outpatient (CLI) | payer OTHER, SELFPAY ==
--- NOTE | ~2024-10-31 | US_ITS ---
Left inguinal ULTRASOUND (Doppler ultrasound interrogation techniques used as needed for this exam.) Ordering provider: Jennifer Calderon, [employer] History: . Intra abd plevic swelling,mass lump,unspecified site . Comparison: None. FINDINGS/impression: 4.3 x 1.5 x 3.1 cm with movements during Valsalva suggestive of inguinal hernia. Reviewed, dictated and finalized at location A.
== END 2024-10-31 10:50 | disposition home or self-care (01) ==
LOC: MICIMG 10:51
PROVIDERS: PCP Nurse Practitioner Family; Visit Provider Nurse Practitioner Family
DX: R19.09 Other intra-abdominal and pelvic swelling, mass and lump (principal)
CPT/HCPCS: 76882

== ENCOUNTER 2024-11-25 14:44 | Outpatient (CLI) | payer OTHER, SELFPAY ==
--- NOTE | ~2024-11-25 | MM_ITS ---
EXAMINATION: MM screening yamilex BI w eugene HISTORY: Screening TECHNIQUE: Craniocaudal and mediolateral oblique 3-D tomosynthesis images were obtained and synthetic 2-D images were generated. CAD analysis was submitted and interpreted. COMPARISON: No prior mammogram is available for comparison at this institution. BREAST PARENCHYMAL COMPOSITION: Dense: The breasts are extremely dense, which lowers the sensitivity of mammography. FINDINGS: There is no evidence of suspicious mass, calcification, or architectural distortion to sugg est malignancy in either breast. There has been no suspicious interval change. IMPRESSION: 1. No mammographic evidence of malignancy. 2. Recommend routine screening mammography in one year. BI-RADS Category 1: Negative Reviewed, dictated and finalized at location A.
== END 2024-11-25 14:45 | disposition home or self-care (01) ==
PROVIDERS: PCP Nurse Practitioner Family; Visit Provider Obstetrics & Gynecology
DX: Z12.31 Encounter for screening mammogram for malignant neoplasm of breast (principal); Z85.3 Personal history of malignant neoplasm of breast
CPT/HCPCS: 77063; 77067

== ENCOUNTER 2025-03-03 14:45 | Outpatient (CLI) | payer OTHER, SELFPAY ==
--- NOTE | ~2025-03-03 | US_ITS ---
EXAMINATION: US OB <=14 wk fetus w TV DATE: 03/03/2025 15:12 INDICATION: Evaluate for viability TECHNIQUE: Real-time transabdominal and transvaginal obstetr ic ultrasound. FINDINGS: No prior studies for comparison. The uterus measures 10 x 6.9 x 7.6 cm. There is an intrauterine gestational sac, with pole iden tified. pole is identified with crown-rump length measuring 1.52 cm corresponding to 7 weeks 6 day gestation. No heart motions, consistent with demise. Yolk sac is present. There is a subchorionic hemorrhage measuring 2.5 x 2.7 x 1.3 cm. The ovaries within normal limits. There is smal l amount of free fluid in the pelvis. IMPRESSION: 1. demise corresponding to 7 week 3 day gestation age. No heart motions detected. Recomme nd follow-up correlation with beta-hCG levels and ultrasound as clinically indicated. 2: Moderate size subchorionic hemorrhage measuring 2.7 x 2.5 x 1.3 cm. Reviewed, dictated and finalized at location B. IMPRESSION: 1. demise corresponding to 7 week 3 day gestation age. No heart mot ions detected. Recommend follow-up correlation with beta-hCG levels and ultraso und as clinically indicated. 2: Moderate size subchorionic hemorrhage measuring 2.7 x 2.5 x 1.3 cm.
== END 2025-03-03 14:46 | disposition home or self-care (01) ==
LOC: MICIMG 14:46
PROVIDERS: PCP Nurse Practitioner Family; Visit Provider Nurse Practitioner Family
DX: O36.80X0 Pregnancy with inconclusive fetal viability, not applicable or unspecified (principal); Z3A.00 Weeks of gestation of pregnancy not specified
CPT/HCPCS: 76801; 76817

== ENCOUNTER 2025-03-13 00:54 | Day surgery (SDC) | payer OTHER, SELFPAY ==
[2025-03-07 14:40] VITALS: BMI 23.3
--- NOTE | 2025-03-07 14:41 | PC.NURSE ---
Report to the Outpatient Waiting Room, entrance under the green pavilion located off [facility], at time _0600_ on date _[id number]_. Planned Procedure Time: _0730_.? Time changes happen often and if your time is changed the preop area will call you the afternoon before. - You and your visitor will be asked to self-screen and do not enter if you have any COVID symptoms. Please call surgeon if you need to reschedule. - A mask is optional within the hospital at this time. Patients may have clear liquids (water, carbonated beverages, clear teas, apple juice) until 3 hours prior to surgery with a maximum of 20 ounces. - No food from midnight until time of surgery and no smoking, or chewing tobacco (or any form of nicotine). No chewing gum, candy or mints. Take only the following medications with a SIP of water on the morning of surgery: ____Escitalopram DO NOT STOP ANY OF YOUR OTHER PRESCRIPTION MEDICATIONS PRIOR TO SURGERY EXCEPT THE FOLLOWING Hold all vitamins and supplements for 3 days per anesthesiologist. Medications to discontinue per physician Date to take last udms___[id number]____ Please no make-up, nail khmer, hairspray, perfume, deodorant, or body powder the day of surgery.? No jewelry (including any body piercings) or valuables the day of surgery, leave them at home.? Please take a shower or bath the night before, or the morning of, surgery with an antibacterial soap.? Wear comfortable, loose fitting clothing. - Jewelry must be removed prior to entering the operating room.? Rings and piercings that are not removed may be cut off. - The hospital will not accept responsibility for valuables.? - Please leave all valuables, including medications, at home the day of surgery. If you are going home after surgery, a licensed city route driver must drive you home.? - NO public transportation without another adult if you receive anesthesia. - We recommend that an adult stay with you for 24 hours following discharge. - We also recommend that you do not drive, make important decision, drink alcoholic beverages, or take any drugs that were not prescribed by your health care provider for at least 24 hours after your discharge time. Follow any additional instructions given to you from your surgeon. Telephone instructions given to __Sheridan__and asked if any additional questions and then verbalized understanding. Patient advised to call surgeon office or pre surgery nurse liaison [phone] if any additional questions.
--- OUTSIDE RECORDS SUMMARY | 2025-03-13 00:57 | XMS_ITS | Clinical Summary ---
Author Organization [facility] Address [address] [place] [address] Phone Care Team Providers Care Entry Driver Operator Name Role Phone Brenda Gao [facility] Primary Care Provider Allergies Active Allergy Reactions Criticality Noted Date Comments Amoxicillin Hives High 01/25/2018 Medications multivit-minerals /folic acid (ADULT ONE DAILY MULTIVITAMIN ORAL) Take by mouth. Active betamethasone valerate (VALISONE) 0.1 % Cream Apply to affected area 2 times daily. 45 Gram 8 Active escitalopram oxalate (LEXAPRO) 5 mg tablet Take 5 mg by mouth daily. Active norethindrone-eth in estradioL (Ortho-Novum , ,) 1-35 mg-mcg tablet Take 1 Tablet by mouth daily. 84 Tablet 3 0 Active Active Problems No known active problems Immunizations Immunization Administration Dates Next Due (GARDASIL 9)(9-45 YRS) HUMAN PAPILLOMAVIRUS VACCINE, TYPES 6, 11, 16, 18, 31, 33, 45, 52, 58, NONAVALENT (9VHPV), 2 OR 3 DOSE, IM 02/04/2019,04/23/2018 (GARDASIL)(9-45 YRS) HUMAN P APILLOMAVIRUS VACCINE, TYPES 6, 11, 16, 18, QUADRIVALENT (4VHPV), 3 DOSE, IM 02/08/2018 INFLUENZA VACCINE QUADRIVALE NT 3 YR UP PF IM 05/21/2015 Influenza Seasonal Unspecifi ed Formulation IM 06/14/2019,05/25/2018,06/30/2017 Family History Medical History Relation Name Comments Hypertension Father Breast Cancer Maternal Aunt Hypertension Mother Colon Cancer Neg Hx Ovarian Cancer Neg Hx Relation Name Status Comments Father Alive Maternal Aunt Alive Mother Alive Social History Tobacco Use Types Packs/Day Years Used Date Smoking Tobacco: Never Smokeless Tobacco: Never Alcohol Use Standard Drinks/Week Comments Yes 0 (1 standard drink = 0.6 oz pur e alcohol) Occasionally Comments No Sex and Gender Information Value Date Recorded Sex Assigned at Not on file Legal Sex Female 4:17 PM CDT Gender Identity Not on file Sexual Orientation Not on file Last Filed Vital Signs Vital Sign Reading Time Taken Comments Blood Pressure 112/78 03/16/2020 12:07 PM CDT Pulse - - Temperature - - Respiratory Rate - - Oxygen Saturation - - Inhaled Oxygen Concentration - - Weight 64 kg (141 lb) 03/16/2020 12:07 PM CDT Height 167.6 cm (5' 6) 03/16/2020 12:07 PM CDT Body Mass Index 22.76 03/16/2020 12:07 PM CDT Plan of Treatment Health Maintenance Due Date Last Done Comments CERVICAL CANCER SCREENING 01/25/2019 PAP SMEAR 01/25/2019 01/25/2018, 01/25/2018 DTAP/TDAP/TD VACCINES (8 - T d or Tdap) 04/16/2022 04/16/2012, 01/07/2011, 04/13/1998, Additional history exists HPV/Cotest (21-29) 01/25/2023 01/25/2018 HPV/Cotest (30-65) 2023 01/25/2018 INFLUENZA VACCINE (#1) 2025 9, 05/25/2018, 06/30/2017, Additional history exists HEPATITIS B VACCINES Completed 11/01/1996, 09/22/1995, 08/24/1995 HPV VACCINES Completed 02/04/2019, 02/2018, 02/08/2018 Procedures Procedure Name Priority Date/Time Associated Diagnosis Comments CERV/VAG CYTO SCREEN PAP RLFX HPV Routine 01/25/2018 2:53 PM CDT Pap smear for cervical cancer screening Screening for HPV (human papillomavirus) from Last 3 Months or Most Recently Relevant to Health Maintenance Results * CERV/VAG CYTOPATH, THIN PREP IMAGR RFLX HPV (01/25/2018 2:53 PM CDT) CLINICAL INFORMATION SEE COMMENT 01/29/2018 10:32 AM CDT [facility] Comment:Oral contraceptives LAST MENSTRUAL PERIOD 2018011901/29/2018 10:32 AM CDT [facility] PREV PAP: SEE COMMENT 01/29/2018 10:32 AM CDT [facility] Comment:[id number] NIL PREV BX: SEE COMMENT 01/29/2018 10:32 AM CDT [facility] Comment:INFORMATION NOT PROV IDED SOURCE Endocervix 01/29/2018 10:32 AM CDT [facility] ADEQUACY: SEE COMMENT 01/29/2018 10:32 AM CDT [facility] Comment: Satisfactory for evaluation. Endocervical/transformation zone component present. PAP INTERP SEE COMMENT 01/29/2018 10:32 AM CDT [facility] Comment:Negative for intraep ithelial lesion or malignancy. COMMENT SEE COMMENT 01/29/2018 10:32 AM CDT [facility] Comment: This Pap test has been evaluated with computer assisted technology. SQUIRREL MAN: SEE COMMENT 2017 10:32 AM CDT [facility] Comment: ESTELAYJEOVANNY(ASCP) CT screening location: [place] [address] Administration [place] [address] EXPLANATORY NOTE SEE COMMENT 018 10:32 AM CDT [facility] Comment: EXPLANATORY NOTE: The Pap is a screening test for cervical cancer. It is not a diagnostic test and is subject to false negative and false positive results. It is most reliable when a satisfactory sample, regularly obtained, is submitted with relevant clinical findings and history, and when the Pap result is evaluated along with historic and current clinical information. Genital SWAB OF ENDOCERVIX / Unknown Collection / Unknown 01/25/2018 2:53 PM CDT 01/25/2018 8:26 PM CDT Narrative [facility] - 01/29/2018 10:32 AM CDT Performing Organization Information: Site ID: Name: [id number] Address: [facility] Administration [place] [address] Director: Almita Covarrubias Yana Beltrán MD PATHOLOGY/CYTOLOGY APOLINAR FLETCHER Final Result [facility] from Last 3 Months or Most Recently Relevant to Health Maintenance Insurance [facility] OPEN ACCESS HMO Care Teams Entry Driver Operator Relationship Specialty Start Date End Date Brenda Gao FNP [address] [id number] PCP - General Nurse Practitioner Family 12/12/19
--- OUTSIDE RECORDS SUMMARY | 2025-03-13 00:58 | XMS_ITS | Data Portability ---
Author Organization [place] [facility], Main Office Address [address] [place] [address] Assessment No assessment recorded. Plan of Treatment Reminders Order Date Submit Date Provider Last Modified By Organization Details Last Modified Time Details Appointments Any 15 2024 10:30A M Jennifer Calderon APRN Not available Not available Not available Lab CBC w/ auto diff 2023 024 [email or web address] [facility], [address], [place], [address], 04/25/2024 08:56:19 CMP, serum or plasma 2023 024 [facility], [address], [place], [address], 04/12/2024 11:52:51 lipid panel, serum 2023 024 [facility], [address], [place], [address], 04/26/2024 12:57:42 TSH + free T4, serum 2023 024 [email or web address] [facility], [address], [place], [address], 04/12/2024 11:52:53 vitamin D, 25-hydrox y, total, serum 2023 024 [facility], [address], [place], [address], 05/03/2024 13:50:04 hepatitis C virus Ab, serum 2023 024 [facility], [address], [place], [address], 05/03/2024 13:50:05 HbA1c (hemoglob in A1c), blood 2023 024 [facility], [address], [place], [address], 05/03/2024 13:50:04 lipid panel, serum 2022 023 [facility], [address], [place], [address], 05/15/2023 07:54:50 TSH, serum or plasma 2022 023 [facility], [address], [place], [address], 05/15/2023 07:54:50 HbA1c (hemoglob in A1c), blood 2022 023 [facility], [address], [place], [address], 05/15/2023 07:54:50 CMP, serum or plasma 2022 023 [facility], [address], [place], [address], 05/15/2023 07:54:50 CBC w/ auto diff 2022 023 [facility], [address], [place], [address], 05/15/2023 07:54:50 Referral None recorded. Procedures None recorded. Surgeries None recorded. Imaging US, groin - Please call patient to schedule. 2024 025 MAHENDRA [facility], [address] [address], [place], [address], 10/31/2024 14:52:50 Medication Orders escitalop marito 10 mg tablet 2024 025 [facility]ENDRA [id number], [address] [place], [place], [id number], 10/24/2024 12:21:41 escitalop marito 5 mg tablet 2023 024 [id number], [address] [place], [place], [id number], 10/24/2024 12:02:23 escitalop marito 5 mg tablet 2022 023 [id number], [address], [place], [id number], 10/24/2024 12:02:23 Patient TargetsNo targets recorded. Patient Instructions Encounter Date Encounter Id Patient Instructions Last Modified By Organization Details Last Modified Time 01/29/2023 [id number] INFLUENZA VACCIN E TD/TDAP Recommended today, patient declined MAMMOGRAM No screening indicated at this time/ no family history CERVICAL SCREENING/PELVIC EXAMINATION COLORECTAL SCREENING DEPRESSION SCREENING BMI Appropriate continue your current weight loss efforts NUTRITION PHYSICAL ACTIVITY Need more activity Recommendation of 30 minutes of daily activity VISION Your next exam in: ALCOHOL USE TOBACCO USE non smoker SEXUALLY ACTIVE GLUCOSE SCREENING Not needed LIPID SCREENING Not needed Not available 01/29/2023 08:55:01 FU in 1 year for wellness after 01/31/24 FU in 6 mo for Anxiety/depressio n Not available 01/29/2023 08:54:36 04/12/2024 [id number] Follow up in 12 months and as needed Obtain labs Recommend: Influenza immunization Not available 04/12/2024 11:46:52 10/24/2024 [id number] Follow up in 3 months Prescription sent to pharmacy Tests: Complete ultrasound Referral: Recommend: Tetanus vaccine Not available 10/24/2024 12:21:30 Reason for Referral None Reported. Results Created Date Observation Date Name Description Value Unit Range Abnormal Flag Note LastModifiedBy Organization Detail LastModifiedTime 05/07/20 22 05/08/2022 HEMOG LOBIN A1C hemoglobin A1C 5.1 %_of_ total _HGB <5.7 normal For the purpo se of christi nathan for the prese nce of diabe shabana: <5.7% Consi stent with the absen ce of diabe shabana 5.7-6 .4% Consi stent with incre ased risk for diabe shabana (pred iabet es) > or =6.5% Consi stent with diabe shabana This assay resul t is consi stent with a decre ased risk of diabe shabana. Curre ntly, no conse nsus exist s regar kacie use of hemog lobin A1c for diagn osis of diabe shabana in child gely. Accor ding to Ameri can Diabe shabana Assoc iatio n (ADA) guide lines , hemog lobin A1c <7.0% repre sents optim al contr ol in non-p regna nt diabe tic patie nts. Diffe rent metri cs may apply to speci fic patie nt popul ation s. [facility] of Medic al Care in Diabe shabana(A DA). Not Available [facility] [address] [address] [place], [address], 05/08/2022 05:06:33 05/07/2005/08/2022 TSH W/REF LEO TO FT4 TSH w/reflex to FT4 1.41 mIU/L normal Refer ence Range > or = 20 Years 0.40- 4.50 Pregn makenzie Range s First trime ster 0.26- 2.66 Secon d trime ster 0.55- 2.73 Third trime ster 0.43- 2.91 Not Available [facility] [address] [place], [address], 05/08/2022 05:06:32 05/07/2005/08/2022 CBC (INCL UDES DIFF/ PLT) white blood cell count 5.2 thous and/u L 3.8-10 .8 normal Not Available [facility] [address] [place], [address], 05/08/2022 05:06:32 05/07/20 22 05/08/2022 CBC (INCL UDES DIFF/ PLT) red blood cell count 4.84 tammi on/uL 3.80-5 .10 normal Not Available [address], [address], 05/08/2022 05:06:32 05/07/20 22 05/08/2022 CBC (INCL UDES DIFF/ PLT) hemoglobin 13.7 g/dL 11.7-1 5.5 normal Not Available [address], [address], 05/08/2022 05:06:32 05/07/20 22 05/08/2022 CBC (INCL UDES DIFF/ PLT) hematocrit 41.7 % 35.0-4 5.0 normal Not Available [address], [address], 05/08/2022 05:06:32 05/07/20 22 05/08/2022 CBC (INCL UDES DIFF/ PLT) MCV 86.2 fL 80.0-1 00.0 normal Not Available [address], [address], 05/08/2022 05:06:32 05/07/20 22 05/08/2022 CBC (INCL UDES DIFF/ PLT) MCH 28.3 pg 27.0-3 3.0 normal Not Available [address], [address], 05/08/2022 05:06:32 05/07/20 22 05/08/2022 CBC (INCL UDES DIFF/ PLT) MCHC 32.9 g/dL 32.0-3 6.0 normal Not Available [address], [address], 05/08/2022 05:06:32 05/07/20 22 05/08/2022 CBC (INCL UDES DIFF/ PLT) RDW 13.4 % 11.0-1 5.0 normal Not Available [facility] [address] [address], [place], [address], 05/08/2022 05:06:32 05/07/20 22 05/08/2022 CBC (INCL UDES DIFF/ PLT) platelet count 252 thous and/u L 140-40 0 normal Not Available [address], [address], 05/08/2022 05:06:32 05/07/20 22 05/08/2022 CBC (INCL UDES DIFF/ PLT) MPV 9.4 fL 7.5-12 .5 normal Not Available [address], [address], 05/08/2022 05:06:32 05/07/20 22 05/08/2022 CBC (INCL UDES DIFF/ PLT) absolute neutrophils 2402 cells /uL 1500-7 800 normal Not Available [address], [address], 05/08/2022 05:06:32 05/07/20 22 05/08/2022 CBC (INCL UDES DIFF/ PLT) absolute lymphocytes 2028 cells /uL 850-39 00 normal Not Available [address], [address], 05/08/2022 05:06:32 05/07/20 22 05/08/2022 CBC (INCL UDES DIFF/ PLT) absolute monocytes 432 cells /uL 200-95 0 normal Not Available [address], [address], 05/08/2022 05:06:32 05/07/20 22 05/08/2022 CBC (INCL UDES DIFF/ PLT) absolute eosinophils 260 cells /uL 15-500 normal Not Available [address], [address], 05/08/2022 05:06:32 05/07/20 22 05/08/2022 CBC (INCL UDES DIFF/ PLT) absolute basophils 78 cells /uL 0-200 normal Not Available [address], [address], 05/08/2022 05:06:32 05/07/20 22 05/08/2022 CBC (INCL UDES DIFF/ PLT) neutrophils 46.2 % normal Not Available [address], [address], 05/08/2022 05:06:32 05/07/20 22 05/08/2022 CBC (INCL UDES DIFF/ PLT) lymphocytes 39.0 % normal Not Available [address], [address], 05/08/2022 05:06:32 05/07/20 22 05/08/2022 CBC (INCL UDES DIFF/ PLT) monocytes 8.3 % normal Not Available [address], [address], 05/08/2022 05:06:32 05/07/20 22 05/08/2022 CBC (INCL UDES DIFF/ PLT) eosinophils 5.0 % normal Not Available [address], [address], 05/08/2022 05:06:32 05/07/20 22 05/08/2022 CBC (INCL UDES DIFF/ PLT) basophils 1.5 % normal Not Available [address], [address], 05/08/2022 05:06:32 05/07/20 22 05/08/2022 COMPR EHENS OSWALDO METAB OLIC PANEL glucose 86 mg/dL 65-99 normal Fasti ng refer ence inter hunter Not Available [address], [address], 05/08/2022 05:06:31 05/07/20 22 05/08/2022 COMPR EHENS OSWALDO METAB OLIC PANEL urea nitrogen (BUN) 18 mg/dL 7-25 normal Not Available [address], [address], 05/08/2022 05:06:31 05/07/20 22 05/08/2022 COMPR EHENS OSWALDO METAB OLIC PANEL creatinine 0.91 mg/dL 0.50-0 .96 normal Not Available [address], [address], 05/08/2022 05:06:31 05/07/20 22 05/08/2022 COMPR EHENS OSWALDO METAB OLIC PANEL eGFR 88 mL/mi n/1.7 3m2 > or = 60 normal The eGFR is based on the CKD-E PI 2020 equat ion. To calcu late the new eGFR from a previ ous Creat inine or Cysta tin C resul t, go to https ://diana le.vince tillman/bryson kelley s/ kdoqi /gfr% 5Fcal culat or Not Available [address], [address], 05/08/2022 05:06:31 05/07/20 22 05/08/2022 COMPR EHENS OSWALDO METAB OLIC PANEL BUN/creatini ne ratio not applic able (calc ) 6-22 Not Available [address], [address], 05/08/2022 05:06:31 05/07/20 22 05/08/2022 COMPR EHENS OSWALDO METAB OLIC PANEL sodium 141 mmol/ L 135-14 6 normal Not Available [address], [address], 05/08/2022 05:06:31 05/07/20 22 05/08/2022 COMPR EHENS OSWALDO METAB OLIC PANEL potassium 4.2 mmol/ L 3.5-5. 3 normal Not Available [address] [place], [address], 05/08/2022 05:06:31 05/07/20 22 05/08/2022 COMPR EHENS OSWALDO METAB OLIC PANEL chloride 105 mmol/ L 98-110 normal Not Available [address], [address], 05/08/2022 05:06:31 05/07/20 22 05/08/2022 COMPR EHENS OSWALDO METAB OLIC PANEL carbon dioxide 26 mmol/ L 20-32 normal Not Available [address], [address], 05/08/2022 05:06:31 05/07/20 22 05/08/2022 COMPR EHENS OSWALDO METAB OLIC PANEL calcium 9.5 mg/dL 8.6-10 .2 normal Not Available [address], [address], 05/08/2022 05:06:31 05/07/20 22 05/08/2022 COMPR EHENS OSWALDO METAB OLIC PANEL protein, total 7.3 g/dL 6.1-8. 1 normal Not Available [address], [address], 05/08/2022 05:06:31 05/07/20 22 05/08/2022 COMPR EHENS OSWALDO METAB OLIC PANEL albumin 4.5 g/dL 3.6-5. 1 normal Not Available [address], [address], 05/08/2022 05:06:31 05/07/20 22 05/08/2022 COMPR EHENS OSWALDO METAB OLIC PANEL globulin 2.8 g/dL_ (calc ) 1.9-3. 7 normal Not Available [address], [address], 05/08/2022 05:06:31 05/07/20 22 05/08/2022 COMPR EHENS OSWALDO METAB OLIC PANEL albumin/glob ulin ratio 1.6 (calc ) 1.0-2. 5 normal Not Available [address], [address], 05/08/2022 05:06:31 05/07/20 22 05/08/2022 COMPR EHENS OSWALDO METAB OLIC PANEL bilirubin, total 0.4 mg/dL 0.2-1. 2 normal Not Available [address], [address], 05/08/2022 05:06:31 05/07/20 22 05/08/2022 COMPR EHENS OSWALDO METAB OLIC PANEL alkaline phosphatase 67 U/L 31-125 normal Not Available [address], [address], 05/08/2022 05:06:31 05/07/20 22 05/08/2022 COMPR EHENS OSWALDO METAB OLIC PANEL AST 29 U/L 10-30 normal Not Available [address], [address], 05/08/2022 05:06:31 05/07/20 22 05/08/2022 COMPR EHENS OSWALDO METAB OLIC PANEL ALT 47 U/L 6-29 high Not Available [address], [address], 05/08/2022 05:06:31 05/07/20 22 05/08/2022 LIPID PANEL , STAND SUSIE cholesterol, total 227 mg/dL <200 high Not Available [address], [address], 05/08/2022 05:06:31 05/07/20 22 05/08/2022 LIPID PANEL , STAND SUSIE HDL cholesterol 52 mg/dL > or = 50 normal Not Available [address], [address], 05/08/2022 05:06:31 05/07/20 22 05/08/2022 LIPID PANEL , STAND SUSIE triglyceride s 192 mg/dL <150 high Not Available [address], [address], 05/08/2022 05:06:31 05/07/20 22 05/08/2022 LIPID PANEL , STAND SUSIE LDL-choleste rol 142 mg/dL _(bill c) high Refer ence range : <100 Gavi able range <100 mg/dL for prima ry preve ntion ; <70 mg/dL for patie nts with CHD or diabe tic patie nts with > or = 2 CHD risk facto rs. LDL-C is now calcu lated using the Abby n-Hop kins calcu latio n, which is a valid ated novel metho d provi ding daniel r accur acy than the Fried duc equat ion in the estim ation of LDL-C . Abby shultz SS et al. ELMO. 2013; 310(1 9): 2061- 2068 (http ://ed ucati on.Qu estCAMAC Energy. com/f aq/FA Q164) Not Available [address], [address], 05/08/2022 05:06:31 05/07/20 22 05/08/2022 LIPID PANEL , STAND SUSIE chol/HDLC ratio 4.4 (calc ) <5.0 normal Not Available [address], [address], 05/08/2022 05:06:31 05/07/20 22 05/08/2022 LIPID PANEL , STAND SUSIE non HDL cholesterol 175 mg/dL _(bill c) <130 high For patie nts with diabe shabana plus 1 major ASCVD risk facto r, treat ing to a non-H DL-C goal of <100 mg/dL (LDL- C of <70 mg/dL ) is consi dered a thera peuti c optio n. Not Available [facility] [address] [place], [place] [address] , [place], [address], 05/08/2022 05:06:31 11/01/19 25 10/31/2024 US, groin No observ ation record ed. [email or web address] [facility] [address], [place], [address], 11/01/2024 07:39:49 11/26/19 25 11/25/2024 MAMMO , scree jac, digit al, bilat eral No observ ation record ed. [email or web address] [facility] [address], [place], [address], 11/30/2024 10:05:36 Result Notes None recorded. Problems Name Problem SNOMED Code Status Onset Date Resolution Date Notes Provider Name and Address Organization Details Recorded Time Anxiety 33564395 Active 020 Jennifer Calderon APRN [address], [place], [address], [employer] 5 12:15:42 Essential tremor 487683188 Active 020 Jennifer Calderon APRN [address], [address], [place], [address], [employer] 4 08:27:50 Mixed anxiety and depressive disorder 525377389 Active 023 Jennifer Calderon APRN [address], [place], [address], [employer] 4 08:27:52 Vitamin D deficiency 95861184 Active 024 Jennifer Calderon APRN [address], [address], [place], [address], [employer] 4 08:28:22 Skin nodule 58070917 Active 025 Jennifer Calderon APRN [address], [address], [place], [address], [employer] 5 12:11:55 Groin mass 935563144 Active 025 Jennifer Calderon, DIRECTOR OF EMPLOYER SERVICES [address], [facility] [address], [place], [address], [facility] Adenyo [facility] 5 12:12:15 Inguinal hernia 709521473 Active 025 Jennifer Calderon APRN [address], [address], [place], [address], [facility] Adenyo [facility] 5 14:57:25 Problem Notes None recorded. Procedures Surgical History Date Name Laterality Status Provider Name and Address Organization Details Recorded Time 10/15/2022 Date of Last Pap Smear completed Brenda Carrillo RN [facility] 01/29/2023 10:46:01 Imaging Results None recorded. Procedure Notes None recorded. Medical Equipment None Reported. Allergies Allergen ID Allergen Name Allergen Category Reaction Reaction Severity Criticality Documentation Date Start Date Code Code System Note Provider Name and Address Organization Details Recorded Time 44820 amoxicill in medicatio n hives moderate Not available 10/15/2022 723 RxNorm Very young when react ion Not Available [facility] 3 21:31[facility]30 Medications Name Sig Start Date Stop Date Status Note LastModified by Organization Details LastModified Time cyclobenzap rine 10 mg tablet TK 1 T PO Q 8 H PRN. CUT IN HALF IF TOO SEDATING 09/08 completed Not Available Not Available Not Available tretinoin 0.025 % topical cream APPLY A THIN LAYER TOPICALLY TO FACE BEFORE BEDTIME AFTER WASHING. LAYER WITH MOISTURIZ ER NEEDED active Not Available Not Available No t Available Zithromax Z-Stanton 250 mg tablet TAKE 2 TABLETS (500 MG) BY ORAL ROUTE ONCE DAILY FOR 1 DAY THEN 1 TABLET (250 MG) BY ORAL ROUTE ONCE DAILY FOR 4 DAYS 01/28 completed Not Available Not Available Not Available Nortrel 135 (28) 1 mg-35 mcg tablet TK 1 T PO D 01/28 completed Not Available Not Available Not Available naproxen sodium 550 mg tablet TK 1 T PO Q 12 HOURS PRN 09/08 completed Not Available Not Available Not Available escitalopra m 10 mg tablet TAKE 1 TABLET BY MOUTH EVERY DAY active Not Available Not Available No t Available Nortrel (28) 0.5 mg/0.75 mg/1 mg-35 mcg tablet TK 1 T PO QD 01/28 completed Not Available Not Available Not Available escitalopra m 5 mg tablet TAKE 1 TABLET BY MOUTH EVERY DAY 10/24 completed Not Available Not Available Not Available Vitals Date Recorded Body height Body mass index (BMI) Body weight Body temperature Heart rate Oxygen saturation Oxygen saturation in Arterial blood by Pulse oximetry Pain severity - 0-10 verbal numeric rating [Score] - Reported Systolic And Diastolic Provider Name and Address Organization Details Last Updated DateTime 5 167.64 cm 23.4 kg/m2 44152.8 9 g 98.3 [degF] 99 /min 99 % 99 % 1 116/64 mm[Hg] Dianne Thomas MA [facility] 5 11:59:28 Date Recorded Body mass index (BMI) Body height Body weight Provider Name and Address Organization Details Last Updated DateTime 01/28/2022 29.7 kg/m2 167.64 cm [address] g Not Available [facility] 10/15/2022 21:29:26 Date Recorded Body weight Body mass index (BMI) Body height Body temperature Heart rate Respiratory rate Oxygen saturation Oxygen saturation in Arterial blood by Pulse oximetry Pain severity - 0-10 verbal numeric rating [Score] - Reported Systolic And Diastolic Provider Name and Address Organization Details Last Updated DateTime 3 [address].6 4 g 23.5 kg/m2 167.64 cm 97 [degF] 76 /min 16 /min 99 % 99 % 0 116/70 mm[Hg] Brenda Carrillo RN [facility] 3 10:40:25 Date Recorded Body height Body mass index (BMI) Body weight Body temperature Heart rate Oxygen saturation Oxygen saturation in Arterial blood by Pulse oximetry Systolic And Diastolic Provider Name and Address Organization Details Last Updated DateTime 4 167.64 cm 25.2 kg/m2 30032.4 1 g 97.4 [degF] 66 /min 99 % 99 % 108/68 mm[Hg] Dianne Thomas [place] [facility] 4 11:22:57 Social History Question Answer Notes LastModified by Organizat ion Details LastModified Time Tobacco Smoking Status Never Smoker Not Available [employer] 10/15/2022 21:28:45 Do You Have An Advance Directive? No [id number] Information not available 10/15/2022 Is Blood Transfusion Acceptable In An Emergency? Yes Information not available 01/29/2023 What Is Your Level Of Caffeine Consumption? Moderate [id number] Information not available 10/15/2022 What Is Your Code Status? Full Code Information not available 01/29/2023 In The 14 Days Before Symptom Onset, Have You Had Close Contact With A Laboratory-confir med COVID-19 While That Case Was Ill? No [id number] Information not available 10/15/2022 In The 14 Days Before Symptom Onset, Have You Had Close Contact With A Person Who Is Under Investigation For COVID-19 While That Person Was Ill? No [id number] Information not available 10/15/2022 What Type Of Diet Are You Following? REGULAR [id number] Information not available 10/15/2022 What Is The Highest Grade Or Level Of School You Have Completed Or The Highest Degree You Have Received? [id number] Information not available 01/29/2023 Have There Been Any Changes To Your Family Or Social Situation? Yes . Information no t available 01/29/2023 Are There Any Guns Present In Your Home? No Information not available 01/29/2023 Do You Use Insect Repellent Routinely? Yes Information not available 01/29/2023 Where Do You Live? [facility] Information not available 01/29/2023 Do You Have A Medical Power Of Insurance Claims Clerk? No [id number] Information not available 10/15/2022 What Was The Date Of Your Most Recent Tobacco Screening? 10/24/2024 Information not available 10/24/2024 How Many Children Do You Have? 2 Information not available 04/12/2024 Do You Have Any Pets? Yes Information not available 01/29/2023 What Is Your Relationship Status? [id number] Information not available 10/15/2022 Do You Use Your Seat Belt Or Car Seat Routinely? Yes [id number] Information not available 10/15/2022 Do You Have Smoke And Carbon Monoxide Detectors In Your Home? Yes Information not available 01/29/2023 Are You Passively Exposed To Smoke? No Information no t available 04/12/2024 Are There Any Smokers In Your House? No Information not available 01/29/2023 Do You Participate In Social Media? Yes Information not available 01/29/2023 Do You Use Sunscreen Routinely? Yes Information not available 01/29/2023 Have You Recently Traveled Abroad? No [id number] Information not available 10/15/2022 Do You Have Any Dietary Restrictions? No [id number] 1007 Information not available 10/15/2022 Sex: Female Functional Status Question Answer Note LastModified by Organizat ion Details LastModified Time Do you use any illicit or recreational drugs? No Information not available 04/12/2024 Do you or have you ever used any other forms of tobacco or nicotine? No Information not available 04/12/2024 What is your level of alcohol consumption? None [id number] Information not available 10/15/2022 Are you currently employed? 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 None [id number] Information not available 10/15/2022 Mental Status Question Answer Note LastModified by Organizat ion Details LastModified Time Do you feel stressed (tense, restless, nervous, or anxious, or unable to sleep at night)? [id number] Information not available 10/15/2022 Family History Relationship Description Onset Age of this Age Resolved Age Notes LastModified by Organization Details LastModified Time Maternal Grandmother Family history of stroke Not available 2022 10:40:55 Maternal Aunt Malignant tumor of breast 40 [email or web address] Not available 2022 11:09:02 Father Hypertensive disorder Not available 2022 10:41:52 Father Hypercholest erolemia Not available 2022 10:42:36 Mother Hypertensive disorder Not available 2022 10:41:52 Mother Hypercholest erolemia Not available 2022 10:42:36 Medical History Condition Response BLINDNESS N RHEUMATIC FEVER N KIDNEY STONES N BLADDER PROBLEMS N MRSA N OTHER # 1 N POLIO N LUNG DISEASE/DISORDER N HISTORY OF DRUG ABUSE N RADIATION / CHEMOTHERAPY N COPD N Other # 2 N BLOOD DISEASES N SURGERY N EAR OR HEARING PROBLEMS N MUMPS N SHINGLES N FEMALE PROBLEMS / INFECTIONS N DEPRESSION (INCLUDING POST ) N BOWEL PROBLEMS N FAILED BACK SYNDROME N STROKE/TIA N THYROID DISEASE N ULCERS N BENIGN PROSTATIC HYPERPLASIA N MEASLES N CERVICALGIA N TB SKIN TEST N HYPOTENSION N MYOCARDIAL INFARCTION N PARAPELGIA N OBESITY N GERD/NAUSEA N ANEURYSM N URINARY/BLADDER/KIDNEY PROBLEMS N CORONARY ARTERY DISEASE (CAD) N MENIERE'S DISEASE N Do you have Advance directive? N ADDICTION CONCERNS N ENDOMETRIOSIS N USE OF BLOOD THINNERS N SKIN PROBLEMS N EMPHYSEMA N GASTROINTESTINAL DISORDER N PERIPHERAL ARTERY DISEASE N MUSCLE,JOINT OR BONE PROBLEMS N GASTROINTESTINAL BLEEDING N BLOOD CLOTS N ASTHMA N CATARACTS N Abdominal Pain N ERECTILE DYSFUNCTION N ARTERIAL INSUFFICIENCY N GI PROBLEMS N CHF N Low Testosterone N NEUROPATHY N INFERTILITY N AIDS/HIV N FRACTURES N CHEMOTHERAPY / RADIATION N VISION/EYE PROBLEMS N LIVER DISEASE N MALE HYPOGONADISM N HYPERTENSION N TOURETTE'S N ANXIETY DISORDER Y BLOOD TRANSFUSION N ANEMIA/BLOOD DISORDER N CHRONIC EAR INFECTIONS N BRONCHITIS N TUBERCULOSIS N GLAUCOMA N FOOT PROBLEM N DIVERTICULITIS N SLEEP APNEA N CHICKENPOX N ALLERGIES/HAYFEVER N BACK INJECTIONS N INFECTIOUS DISEASE N PROSTATE N HEART ARRHYTHMIA N ESRD N INSOMNIA N HIGH CHOLESTEROL / HYPERLIPIDEMIA N EYE PROBLEMS N HYPERTHYROIDISM N PVD N EATING DISORDER N EDEMA N CHRONIC PAIN SYNDROME N CAROTID BLOCKAGE N CONSTIPATION N BACK / NECK PROBLEMS N HAVE YOU BEEN HOSPITALIZED OR SEEN IN [place] IN THE PAST YEAR ? N ATHEROSCLEROSIS N BREAST PROBLEMS N DIALYSIS N POLYCYSTIC OVARIES N ECZEMA N FIBROMYALGIA N OSTEOPOROSIS N ARTHRITIS N NO SIGNIFICANT PAST MEDICAL HISTORY N APPENDICITIS N DIABETES, TYPE N BAD TEETH N VON WILLIBRAND'S DISEASE N HEARTBURN / REFLUX N ADD/ADHD N AUTISM SPECTRUM DISORDER (ASD) N POST LAMINECTOMY SYNDROME N HEPATITIS / LIVER DISEASE N PULMONARY DISEASE N GOUT N SLEEP DISORDER N ALZHEIMER'S DISEASE N PAIN N DEMENTIA N HERPES N SEIZURES/EPILEPSY N HEADACHES/MIGRAINES N VASCULAR DISEASE N PACEMAKER N DIZZINESS N KIDNEY DISEASE N HEART DISEASE/HEART PROBLEMS N SCARLET FEVER N MULTIPLE SCLEROSIS N MENTAL DISORDER/ILLNESS N DEVELOPMENTAL OR BEHAVIORAL DISORDERS N NEUROPSYCHOLOGICAL N CANCER: SPECIFY N CARDIAC ARRHYTHMIA N PNEUMONIA N ATRIAL FIBRILLATION N Gall Stones N PULMONARY EMBOLISM N AUTOIMMUNE DISEASE N Gynecological History Statement/Question Response Abnormal Pap N Flow Moderate Date of LMP 10/02/2024 STIs/STDs N Dislike of Light during Menstrual Headac he N Do your menstrual headaches get severe N Date of Last Pap Duration of Flow (days) 5 Most Recent Mammogram Current Control Method None Age at Menarche 10 Breast Problems none How many live births 2 Date of Last Colonoscopy Frequency of Cycle (Q days) 28 Most Recent Bone Density Sexually Active? Y Do you get headaches during your period Y Menses Monthly Y Date of Last Pap Smear 10/15/2022 Discharge none Obstetrics History GPAL:G 2 P 2 0 0 2 Type Value Multiple Births 0 Full Term 2 Induced 0 Spontaneous 0 Premature 0 Living 2 Ectopics 0 Total 2 Immunizations Vaccine Type Date Status Note Provider Nam e and Address Organization Details Recorded Time Influenza, split virus, quadrivalent, PF 06/27/2022 completed Jennifer Calderon, MASOUD [address], [address], [facility] [employer] [facility] 04/12/2024 11:40:03 Past Encounters Encounter ID Performer Location Encounter Start Date Encounter Closed Date Diagnosis/Indication Diagnosis SNOMED-CT Code Diagnosis ICD10 Code Diagnosis Note [id number] Ilir Paulino MD [address] [address] 01/28/2022 00:00:00 01/28/2022 14:46:29 [id number] Brenda Gao NP [address] [address] 01/29/2023 10:30:21 01/29/2023 11:19:18 Adult health examination 741716304 Z00.00 Mixed anxi ety and depressive disorder 773829559 F41.8 escitalopr am 5 mg po daily. Anemia screening 0203961 07 Z13.0 Diabetes m ellitus screening 528407689 Z13.1 Thyroid di sorder screening 635357300 Z13.29 Hyperlipid emia screening 467890783 Z13.366 [id number] [facility] Internal Med [facility] [address] [facility] [address] [place] [address] 04/12/2024 11:10:43 04/12/2024 11:53:18 Diabetes mellitus screening 829709754 Z13.1 Hyperlipid emia screening 154165153 Z13.220 Screening for disorder 048314841 Z13.9 Thyroid di sorder screening 910710532 Z13.29 Vitamin D deficiency 347 82272 E55.9 Hepatitis C screening 41 4685968 Z11.59 Mixed anxi ety and depressive disorder 629166682 F41.8 Adult heal th examination 832885131 Z00.[id number] [facility] Internal Med [facility] [address] [facility] [address] [place] [address] 10/24/2024 11:51:32 10/24/2024 12:24:19 Groin mass 667372853 R19.00 Mixed anxi ety and depressive disorder 026499922 F41.8 Health Concerns Section Related Observation LastModified by Organization Detai ls LastModified Time None Recorded Concern Status LastModified by Organization Details LastModified Time None Recorded Advance Directives Directive N: Payers Insurance Date Sequence Insurance Name Policy Number Policy Sahni Covered Member ID Sahni Member ID Guarantor Name 10/28/2024 1 [facility] [id number] Sheridan Brennan [id number] Sheridan Brennan Notes Date Note Type Note Provider Name and Address Organization Details Recorded Time 01/29/2023 text/html Here for wellness visit. Tremor- no more since the start of anxiety.Allergies - Stable.Depression and anxiety- Lexapro- controlled Brenda Gao NP [address] [facility], [address], [place], [address], [facility] [employer] 01/29/2023 11:13:55 04/12/2024 text/html Sheridan presents today to establish care as a new patient, her previous provider has left the area. She states that she in here for her annual wellness physical. 01/29/2023Here for wellness visit. Tremor- no more since the start of anxiety.Allergies - Stable.Depression and anxiety- Lexapro- controlled Jennifer Calderon APRN [address], [address], [place], [address], [employer] 04/21/2024 12:22:15 10/24/2024 text/html Sheridan presents today for a lump on her inner groin. There is a small nodule under the skin of the left groin that is movable. It is not tender to touch. She states that this has been going on for a couple of weeks. 04/12/2024Mazin shultz presents today to establish care as a new patient, her previous provider has left the area. She states that she in here for her annual wellness physical. Jennifer Calderon APRN [address], [facility] [address], [place], [address], [employer] 10/24/2024 12:21:52 OBGyn Episode No OBEpisode recorded.
[2025-03-13 06:30] VITALS: BP 118/74; PULSE 91; RESP 16; TEMP 36.6; O2SAT 100
[2025-03-13] MEDS: LACTATED RINGERS 1,000 ML 30 ML IV CONT (06:35)
[2025-03-13] MEDS: ACETAMINOPHEN 500 MG TABLET 1000 MG PO (06:35)
--- NOTE | 2025-03-13 07:16 | WPDANESEPPF ---
Anes - Initial Pre Proc Eval Procedure: Operation Date: 03/13/25 07:30 Proposed Procedures p Suction Dilation and Curettage - Jarett Ramos MD Date/Time: 03/13/25 07:16 Surgeon: Jarett Ramos MD Pre Op Diagnosis: missed AB Patient Data Age: 29 Gender: F Height: 1.68 m Weight: 68 kg Last Vital Signs Temp 97.9 F 03/13/25 06:30 Pulse 91 03/13/25 06:30 Resp 16 03/13/25 06:30 BP 118/74 03/13/25 06:30 Pulse Ox 100 03/13/25 06:30 O2 Del Method Room Air 03/13/25 06:30 Allergies Allergy/AdvReac Type Severity Reaction Status Date / Time amoxicillin Allergy Rash Verified 03/13/25 06:51 Home Medications ?Medication ?Instructions ?Recorded ?Confirmed ?Type prenat.vits,bill,kni-jvsf-abxtf 1 tablet PO DAILY 01/07/22 03/13/25 History escitalopram oxalate 10 mg tablet 10 mg PO DAILY 03/01/25 03/07/25 History (Lexapro) loratadine 10 mg tablet (Claritin) 10 mg PO DAILY 03/01/25 03/07/25 History Laboratory Tests 03/13/25 06:25 Blood Type A Positive Antibody Screen Pending Screen Pending Baby's Blood Type Pending Baby's KLARISSA Pending Doses of RhIg Required Pending Patient hx anesthesia problems: none Family hx anesthesia problems: none Results Review: All pre-operative results and documents have been reviewed as part of the pre-operative evaluation. [facility] Past Medical History Medical History Anxiety Surgical History Surgical History History of femoral hernia repair Family History Family History Father Hypertension Malignant neoplasm of prostate Grandparent Prostate carcinoma Melanoma Cerebrovascular accident Ovarian cancer Mother Hypertension Social History Social History Smoking status: Never smoker Alcohol intake: current Alcohol use details: none with Substance use: never Do You Feel Safe in your Home?: No Lack of Transportation: No Lack of Food: Never True Current Housing: I Have Housing Concerned About Future Housing: No Difficulty Paying Gas/Electric Bills: No Difficulty Paying for Meds: No Currently Unemployed: No Education: Don't Know Difficulty w/ Childcare or Family Care: No Spiritual care concerns: No Anes - Eval Final PreProcedure Day of Procedure 03/13/25 07:16 Patient weight: normal Lungs: normal air movement Airway: Mallampati scale class II Neurological: alert and oriented Last oral intake: >/= 8 hours ASA classification: I Emergent: no Anesthetic plan: proceed Anesthesia type and monitoring: general GIVS and standard monitoring Results Review: All pre-operative results and documents have been reviewed as part of the pre-operative evaluation. Pt in overall excellent health, active without cp or sob. Informed Consent: The patient's anesthetic plan and its attendant risks and benefits were discussed with the patient/family/POA. Questions were solicited and answers provided to the satisfaction of the patient/family/POA.
--- NOTE | 2025-03-13 07:33 | PM.IMHP ---
H&P: HPI History of Present Illness Date/Time: 03/13/25 07:33 Chief Complaint: Miscarriage Narrative: 29 y/o at 9 weeks gestation by LMP, but with US finding of IUP measuring 7w3d and no cardiac motion with SCB. No bleeding or cramping. Rh pos. Review of Systems Review of Systems: All systems reviewed & are unremarkable except as noted in HPI and below PMFSH Past Medical History Medical History Anxiety Surgical History Surgical History History of femoral hernia repair Family History Family History Father Hypertension Malignant neoplasm of prostate Grandparent Prostate carcinoma Melanoma Cerebrovascular accident Ovarian cancer Mother Hypertension Social History Social History Smoking status: Never smoker Alcohol intake: current Alcohol use details: none with Substance use: never Do You Feel Safe in your Home?: No Lack of Transportation: No Lack of Food: Never True Current Housing: I Have Housing Concerned About Future Housing: No Difficulty Paying Gas/Electric Bills: No Difficulty Paying for Meds: No Currently Unemployed: No Education: Don't Know Difficulty w/ Childcare or Family Care: No Spiritual care concerns: No Meds Home Medications and Allergies Home Medications ?Medication ?Instructions ?Recorded ?Confirmed ?Type prenat.vits,bill,yix-uhmt-wnkkh 1 tablet PO DAILY 01/07/22 03/13/25 History escitalopram oxalate 10 mg tablet 10 mg PO DAILY 03/01/25 03/07/25 History (Lexapro) loratadine 10 mg tablet (Claritin) 10 mg PO DAILY 03/01/25 03/07/25 History Allergies Allergy/AdvReac Type Severity Reaction Status Date / Time amoxicillin Allergy Rash Verified 03/13/25 06:51 Vital Signs Vital Signs - 24 hr 03/13/25 06:30 Temperature 97.9 F Pulse Rate 91 Respiratory Rate 16 Blood Pressure 118/74 Pulse Oximetry 100 Oxygen Delivery Room Air Exam Const: Orientation/consciousness: patient oriented x3 Other: Well-developed, well-nourished female in no acute distress. Neck: Thyroid: thyroid normal Lymphatic: no lymphadenopathy noted (in neck, axilla or inguinal nodes) Resp: Effort & Inspection: normal respiratory effort Auscultation: clear to auscultation bilaterally Cardio: Rate: regular rate Rhythm: regular rhythm Heart sounds: S1 normal heart sound present and S2 normal heart sound present GI: Other: ABD: Soft, nontender, nondistended. No guarding or rebound tenderness. No hepatosplenomegaly. : General: Yes no CVA tenderness Other: Deferred to OR Back/Spine/Pelvis: Back: no CVA tenderness Skin: General skin exam: normal color and no rashes or lesions noted Neuro: General: patient oriented x3 Extrem: Other: Extremities: nontender with no edema Psych: Mental Status: mental status grossly normal Affect: normal affect Assessment and Plan Assessment and plan (1) Missed : Code(s): O02.1 - Missed Status: Acute Assessment and Plan: A: Missed SAB. P: Offered medical vs surgical management, and she prefers the latter. Specifically, I have offered her a dilation and suction curettage. She understands risks of surgery to include risks of anesthesia, risks of pain, infection, bleeding, blood products, thromboembolic phenomena and damage to adjacent structures such as bowel, bladder, ureters, blood vessels and nerves. She understands all these risks and elects to proceed with surgery.
--- NOTE | 2025-03-13 07:36 | WPDHPUPDATE1 ---
History and Physical Update Update Date/Time: 03/13/25 07:36 History and Physical has been reviewed, including an updated exam of the patient. There are NO changes in the patient's condition. Risks, benefits, and alternatives have been discussed and questions answered. Patient agrees to proceed with procedure.
[2025-03-13] MEDS: LIDOCAINE 1% LOCAL INJ 10 ML VIAL INFILTRATE (07:40)
--- NOTE | 2025-03-13 07:51 | S_PTH ---
PATIENT: Sheridan Brennan LOC: [facility] U#:[id number] AGE/SX: 29/F ROOM: RE03/13/[address]: Jarett Ramos MD : 1995 BED: DIS: 03/13/2025 SPEC #: [id number] RECD: 03/13/25 09:01 STATUS: ADRIAN REEstevan #: [id number] NAI: 03/13/25 07:[address]: Jarett Ramos DEPT: [facility] Surgical RECD BY: Courtney Valerio ENTERED: 03/13/25 09:01 SP TYPE: Surgical OTHR DR: Jennifer Calderon, CERTIFIED NURSE Tissues: A - Products of Conception Procedures: Hematoxylin and Eosin Stain Gross and Microscopic Level 4
--- NOTE | 2025-03-13 07:57 | W.PM.PROC2 ---
Procedure Note - Detailed Date of Procedure 03/13/25 Pre-op Diagnosis Missed SAB Post-op Diagnosis Same Procedure Performed Dilation and suction curettage Surgeon Jarett Ramos MD Anesthesia MAC and Local (1% lidocaine) Findings Products of conception Description of Procedure The patient was taken to the operating room where she was prepared and draped in the usual sterile fashion in the dorsal lithotomy position. The bladder was drained with a red rubber catheter. A sterile speculum was placed into the vagina. The anterior lip of the cervix was grasped with a single-tooth tenaculum. Ten mL of 1% lidocaine was administered in a paracervical block. The cervix already demonstrated dilation, and an 8mm dilator could easily be passed. The 8mm curved tip suction curette was advanced. Suction curettage was performed and products of conception were aspirated. Sharp curettage was then performed until a good uterine cry was noted. A final pass with the suction curette was made. The tenaculum was removed. Hemostasis was excellent. Sponge, lap, needle and instrument counts were correct. The patient was taken to the recovery room in stable condition. I was present and scrubbed for the entire procedure. Implants None Estimated Blood Loss 250 Drains No Packing No Pathology Yes (Endometrial curettings) Complications None Condition Stable Disposition PACU [facility] Billing Surgery - Charge Forward: Surgery Billing
[2025-03-13 08:00] VITALS: BP 96/52; PULSE 65; RESP 18; O2SAT 98
[2025-03-13 08:30] VITALS: BP 101/62; PULSE 60; RESP 18
[2025-03-13 09:00] VITALS: BP 102/52; PULSE 56; RESP 18
== END 2025-03-13 09:08 | disposition home or self-care (01) ==
PROVIDERS: PCP Nurse Practitioner Family; Visit Provider Obstetrics & Gynecology
PROC: (CPT 59820; principal; 2025-03-13 07:30)
DX: O02.1 Missed abortion (principal)
CPT/HCPCS: 59820; 36415; 85461; 86850; 86900; 86901; 88305; A9270; J1100; J2003; J2250; J2405; J2704; J3010; J7120

== ENCOUNTER 2025-06-29 10:00 | Outpatient (CLI) | payer OTHER, SELFPAY ==
--- OUTSIDE RECORDS SUMMARY | 2025-06-29 10:50 | XMS_ITS | Clinical Summary ---
Author Organization [facility] Address [address] [place] [address] Phone Care Team Providers Care Administrative Fellow Name Role Phone Brenda Gao [facility] Primary Care Provider Allergies Active Allergy [...] 01/29/2018 10:32 AM CDT [facility] Comment:[id number] NIL PREV BX: SEE COMMENT 01/29/2018 10:32 [...] has been evaluated with computer assisted technology. GIFT PACKER: SEE COMMENT 2017 10:32 AM CDT [facility] Comment: ESTELAYJEOVANNY(ASCP) CT screening location: [place] [address] Administration HED[place] Malik [address] EXPLANATORY NOTE SEE COMMENT 018 10:32 AM [...] CDT Performing Organization Information: Site ID: Name: [facility] Address: Pending sale to [facility] Administration [place] Michelle [phone] Director: Almita Covarrubias Yana Beltrán MD PATHOLOGY/CYTOLOGY APOLINAR FLETCHER Final Result [facility] from Last 3 Months or Most Recently Relevant to Health Maintenance Insurance [facility] OPEN ACCESS HMO Care Teams Administrative Fellow Relationship Specialty Start Date End Date Brenda Gao FNP [address] [phone] PCP - General Nurse Practitioner Family 12/12/19
[2025-06-30 14:09] LABS: Anticardiolipin Ab,IgA,Qn <9 APL U/mL (0-11); Anticardiolipin Ab,IgG,Qn <9 GPL U/mL (0-14); Anticardiolipin Ab,IgM,Qn <9 MPL U/mL (0-12); Beta-2 Glycoprotein I Ab, IgA <9 (0-25); Beta-2 Glycoprotein I Ab, IgG <9 (0-20); Beta-2 Glycoprotein I Ab, IgM <9 (0-32)
== END 2025-06-29 10:01 | disposition home or self-care (01) ==
LOC: ANHLAB 10:02
PROVIDERS: Visit Provider Obstetrics & Gynecology
DX: N96 Recurrent pregnancy loss (principal)
CPT/HCPCS: 86146; 86147